=== PATIENT | female | born 1975 | race Caucasian/White ===

== ENCOUNTER 2018-08-31 14:48 | Emergency (ER) | payer OTHER ==
[2018-08-31] MEDS ORDERED: LABETALOL 20 MG/4ML SYRINGE IV ONE (15:16)
--- NOTE | 2018-08-31 15:18 | RAD REPORT ---
EXAM DESCRIPTION: CT - Ct Stroke Brain Wo Cont - 08/31/2018 3:13 pm CLINICAL HISTORY: Hypertension, headache, right-sided facial numbness and facial droop CLINICAL HISTORY: None. TECHNIQUE: Axial 5 millimeter thick images of the head were obtained without IV contrast. All CT scans are performed using dose optimization technique as appropriate and may include automated exposure control or mA/KV adjustment according to patient size. FINDINGS: No intracranial hemorrhage, mass, or cerebral edema. No acute cortical based infarction id entified. No cortical edema or sulcal effacement. Ventricles are normal. Posterior fossa artifact is present. There is additional spray artifact from a left-sided ear ring. No extra-axial fluid collecti ons. Ross matter-white matter differentiation is preserved. Visualized portions of the mastoid air cells, paranasal sinuses, and orbits are unremarkable. Findings telephoned to the referring clinician 3:14 p.m. IMPRESSION: No CT evidence of acute intracranial process. MR imaging can be used to further evaluate ongoing acute CVA symptoms.
[2018-08-31 15:25] LABS: Absolute Lymphocytes (CBC) 1.8 K/uL (0.7-4.9); Absolute Monocytes 0.7 K/uL (0.1-1.3); Absolute Neutrophil 5.7 K/uL (1.8-8.0); Basophils % 0.8 % (0-1.3); Eosinophils % 3.2 % (0-4.4); Hematocrit 45.8 % (36.0-45.0); Lymphocytes % 20.8 % (15.3-44.8); MPV 9.4 fL (7.6-11.3); RBC Red Blood Cell Count 4.93 M/uL (3.86-4.86)
[2018-08-31 15:40] LABS: Protime INR 1.11
[2018-08-31] MEDS ORDERED: ALTEPLASE 100 ML IV ONE (15:42)
[2018-08-31 15:45] LABS: BUN Blood Urea Nitrogen 8 mg/dL (7-18); Bicarbonate 29 mmol/L (21-32); Glucose Level 88 mg/dL (74-106); Potassium 3.5 mmol/L (3.5-5.1); Sodium Level 143 mmol/L (136-145); Troponin (Emerg Dept Use Only) < 0.02 ng/mL (0.0-0.045)
--- NOTE | 2018-08-31 15:53 | EDPHYS ---
Physician Documentation [facility] Name: Lesvia Olguin Age: 42 yrs Sex: Female : 1975 Arrival Date: 08/31/2018 Time: 14:49 Bed 4 Private MD: Darren Cole R ED Physician Bill Casey HPI: 08/31 15:09 This 42 yrs old Female presents to ER via Unassigned with complaints of rn Numbness Of Face, Numbness Of Arm, High Blood Pressure. 15:09 The patient's problem is reported as a facial droop, paresthesias, in left upper rn extremity, in right side of face. Onset: The symptoms/episode began/occurred at 12:00. Duration: This was a single incident, The episode is continuous. The symptoms are alleviated by nothing. The symptoms are aggravated by nothing. Severity of symptoms: At their worst the symptoms were mild in the emergency department the symptoms are unchanged. The patient has not experienced similar symptoms in the past. Reports sudden onset right facial droop and left arm numbness, feels heavy, single continuous episode, no head injury, reports told had high blood pressure, doesn't take anything for BP. + right sided headache. . 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 - Social history:: Smoking status: . - Family history:: not pertinent. - Ebola Screening: : Patient denies travel to an Ebola-affected area in the 21 days before illness onset. - Hospitalizations: : No recent hospitalization is reported. ROS: 15:09 Constitutional: Negative for fever, chills, and weight loss, Eyes: Negative for injury, rn pain, redness, and discharge, Neck: Negative for injury, pain, and swelling, Cardiovascular: Negative for chest pain, palpitations, and edema, Respiratory: Negative for shortness of breath, cough, wheezing, and pleuritic chest pain, Abdomen/GI: Negative for abdominal pain, nausea, vomiting, diarrhea, and constipation, MS/Extremity: Negative for injury and deformity, Skin: Negative for injury, rash, and discoloration, Neuro: + headache and numbness Exam: 15:09 Constitutional: This is a well developed, well nourished patient who is awake, alert, rn and in no acute distress. Head/Face: Normocephalic, atraumatic. Eyes: Pupils equal round and reactive to light, extra-ocular motions intact. Conjunctiva and sclera are non-icteric and not injected. Cornea within normal limits. Periorbital areas with no swelling, redness, or edema. ENT: MMM Neck: Trachea midline, no thyromegaly or masses palpated, and no cervical lymphadenopathy. Supple, full range of motion without nuchal rigidity, or vertebral point tenderness. No Meningismus. Cardiovascular: Regular rate and rhythm. No pulse deficits. Respiratory: No increased work of breathing, no retractions or nasal flaring. MS/ Extremity: Pulses equal, no cyanosis. Neurovascular intact. Full, normal range of motion. Equal circumference. Neuro: Awake and alert, GCS 15, oriented to person, place, time, and situation. + right upper and lower facial droop, + right facial paresthesia, + LUE paresthesias, no peripheral weakness. Normal gait. Normal cerebellar exam. Vital Signs: 15:20 BP 203 / 117; Pulse 75; Resp 19; Temp 98.9(O); Pulse Ox 100% on R/A; jb1 15:21 BP 203 / 117; Pulse 70; Resp 16; iw 15:24 Temp 97.8(TE); Weight 95.71 kg (R); tw2 15:28 BP 189 / 106; Pulse 78; Resp 18; Pulse Ox 100% on R/A; iw 15:32 BP 179 / 98; iw 15:52 BP 177 / 96; rn 16:00 BP 178 / 90; Pulse 62; Resp 20; Pulse Ox 100% on R/A; jb1 16:01 BP 166 / 93; Pulse 70; Resp 16; Pulse Ox 98% on R/A; iw 16:45 BP 164 / 91; Pulse 75; Resp 17; Temp 98.2(O); Pulse Ox 99% on R/A; iw 17:06 BP 151 / 96; Pulse 78; Resp 17; Pulse Ox 98% on R/A; tw2 17:16 BP 173 / 93; Pulse 71; Resp 17; Pulse Ox 99% on R/A; tw2 NIH Stroke Scale Scores: 14:49 NIHSS Score: 3 tw2 15:09 NIHSS Score: 3 rn 16:36 NIHSS Score: 3 iw 17:16 NIHSS Score: 3 tw2 MDM: 14:54 Patient medically screened. rn 15:18 ED course: CT head no acute findings per Dr. Mayfield. . rn 15:50 Differential diagnosis: CVA. Data reviewed: vital signs, nurses notes, lab test rn result(s), EKG, radiologic studies, CT scan, and as a result, I will admit patient. Counseling: I had a detailed discussion with the patient and/or guardian regarding: the historical points, exam findings, and any diagnostic results supporting the discharge/admit diagnosis, the presence of at least one elevated blood pressure reading (>120/80) during this emergency department visit, lab results, radiology results, the need to transfer to another facility, for higher level of care, [facility] does not immediately have the required specialist. ED course: Accepted for transfer to [facility] for suspected ischemic stroke, TPA started, BP improved after labetalol. . 16:51 ED course: CTA head and neck negative.. rn 08/31 15:03 Order name: Troponin (emerg Dept Use Only); Complete Time: 15:45 rn 08/31 15:03 Order name: Basic Metabolic Panel; Complete Time: 15:45 rn 08/31 15:03 Order name: CBC with Diff; Complete Time: 15:39 rn 08/31 15:03 Order name: Protime (+inr); Complete Time: 15:48 rn 08/31 15:03 Order name: Ptt, Activated; Complete Time: 15:48 rn 08/31 15:03 Order name: CT Stroke Brain w/o Contrast; Complete Time: 15:39 rn 08/31 15:03 Order name: Stroke CXR 1 View; Complete Time: 16:40 rn 08/31 15:53 Order name: Head angio; Complete Time: 16:50 EDMS 08/31 15:53 Order name: Neck Angio; Complete Time: 16:50 EDMS 08/31 15:03 Order name: EKG; Complete Time: 15:04 rn 08/31 15:03 Order name: Accucheck; Complete Time: 15:49 rn 08/31 15:03 Order name: Cardiac monitoring; Complete Time: 15:49 rn 08/31 15:03 Order name: EKG - Nurse/Tech; Complete Time: 15:49 rn 08/31 15:03 Order name: IV Saline Lock; Complete Time: 15:49 rn 08/31 15:03 Order name: Labs collected and sent; Complete Time: 15:49 rn 08/31 15:03 Order name: NPO; Complete Time: 15:49 rn 08/31 15:03 Order name: O2 Per Protocol; Complete Time: 15:49 rn 08/31 15:03 Order name: O2 Sat Monitoring; Complete Time: 15:49 rn 08/31 15:03 Order name: Stroke Swallow Screen; Complete Time: 15:49 rn Administered Medications: 15:18 Drug: Labetalol 10 mg Route: IVP; Site: right antecubital; tw2 15:30 Follow up: Response: No adverse reaction; No change in condition; Blood pressure is tw2 unchanged 15:30 CANCELLED (md): Labetalol 10 mg IVP once over 2 mins; For SBP greater than 140. Hold tw2 for HR less than 60, notify provider. 15:30 Drug: Labetalol 10 mg Route: IVP; Site: right antecubital; tw2 16:13 Follow up: Response: No adverse reaction; Blood pressure is lowered tw2 15:36 Drug: ACTIvase {Co-Signature: tw2 (Mallory Leyva RN).} Route: IV Thrombolytics; Rate: iw calculated rate; Infused Over: 60 mins; 16:36 Follow up: Response: No adverse reaction; No change in condition iw 16:36 Follow up: Response: No adverse reaction; No change in condition iw 16:26 Drug: Demerol 25 mg Route: IVP; Site: left antecubital; iw 17:16 Follow up: Response: No adverse reaction; Pain is unchanged, physician notified tw2 Point of Care Testing: Blood Glucose: 15:20 Blood Glucose: 78 mg/dL; tw2 15:20 per Kyaw Morris tw2 Ranges: Critical Glucose Levels:Adult <50 mg/dl or >400 mg/dl <40 mg/dl or >180 mg/dl Disposition: 08/31/18 15:[address] [facility]. Diagnosis are Paresthesia of skin, Facial weakness. - Reason for transfer: Higher level of care. - Accepting physician is Dr. Wynn. - Condition is Stable. - Problem is new. - Symptoms are unchanged. Critical care time excluding procedures: 15:50 Critical care time: Bedside Care: 25 minutes, Consultation: 3 minutes, Family rn Intervention: 5 minutes. Total time: 33 minutes NIH Stroke Scale - NIH Stroke Score Date: 08/31/2018 Time: 14:49 Total Score = 3 1a. Level of Consciousness (LOC) - 0(Alert) 1b. Level of Consciousness (LOC) (Year \T\ Age) - 0(Both) 1c. LOC Commands (Open \T\ Closes Eyes/Mold Maker Plaster) - 0(Both) 2. Best Gaze (Lateral Gaze Paresis) - 0(Normal) 3. Visual Field Loss - 0(No visual loss) 4. Facial Palsy - 2(Partial paralysis) 5a. Left Arm: Motor (10-second hold) - 0(No drift) 5b. Right Arm: Motor (10-second hold) - 0(No drift) 6a. Left Leg: Motor (5-second hold - always test supine) - 0(No drift) 6b. Right Leg: Motor (5-second hold - always test supine) - 0(No drift) 7. Limb Ataxia (finger/nose \T\ heel/alonso - test with eyes open) - 0(Absent) 8. Sensory Loss (pinprick arms/legs/face) - 1(Mild to moderate loss) 9. Best Language: Aphasia (description/naming/reading) - 0(No aphasia) 10. Dysarthria (speech clarity - read or repeat words) - 0(Normal) 11. Extinction and Inattention (visual/tactile/auditory/spatial/personal) - 0(No abnormality) Initials: tw2 NIH Stroke Scale - NIH Stroke Score Date: 08/31/2018 Time: 15:09 Total Score = 3 1a. Level of Consciousness (LOC) - 0(Alert) 1b. Level of Consciousness (LOC) (Year \T\ Age) - 0(Both) 1c. LOC Commands (Open \T\ Closes Eyes/Mold Maker Plaster) - 0(Both) 2. Best Gaze (Lateral Gaze Paresis) - 0(Normal) 3. Visual Field Loss - 0(No visual loss) 4. Facial Palsy - 2(Partial paralysis) 5a. Left Arm: Motor (10-second hold) - 0(No drift) 5b. Right Arm: Motor (10-second hold) - 0(No drift) 6a. Left Leg: Motor (5-second hold - always test supine) - 0(No drift) 6b. Right Leg: Motor (5-second hold - always test supine) - 0(No drift) 7. Limb Ataxia (finger/nose \T\ heel/alonso - test with eyes open) - 0(Absent) 8. Sensory Loss (pinprick arms/legs/face) - 1(Mild to moderate loss) 9. Best Language: Aphasia (description/naming/reading) - 0(No aphasia) 10. Dysarthria (speech clarity - read or repeat words) - 0(Normal) 11. Extinction and Inattention (visual/tactile/auditory/spatial/personal) - 0(No abnormality) Initials: NIH Stroke Scale - NIH Stroke Score Date: 08/31/2018 Time: 16:36 Total Score = 3 1a. Level of Consciousness (LOC) - 0(Alert) 1b. Level of Consciousness (LOC) (Year \T\ Age) - 0(Both) 1c. LOC Commands (Open \T\ Closes Eyes/Mold Maker Plaster) - 0(Both) 2. Best Gaze (Lateral Gaze Paresis) - 0(Normal) 3. Visual Field Loss - 0(No visual loss) 4. Facial Palsy - 2(Partial paralysis) 5a. Left Arm: Motor (10-second hold) - 0(No drift) 5b. Right Arm: Motor (10-second hold) - 0(No drift) 6a. Left Leg: Motor (5-second hold - always test supine) - 0(No drift) 6b. Right Leg: Motor (5-second hold - always test supine) - 0(No drift) 7. Limb Ataxia (finger/nose \T\ heel/alonso - test with eyes open) - 0(Absent) 8. Sensory Loss (pinprick arms/legs/face) - 1(Mild to moderate loss) 9. Best Language: Aphasia (description/naming/reading) - 0(No aphasia) 10. Dysarthria (speech clarity - read or repeat words) - 0(Normal) 11. Extinction and Inattention (visual/tactile/auditory/spatial/personal) - 0(No abnormality) Initials: NIH Stroke Scale - NIH Stroke Score Date: 08/31/2018 Time: 17:16 Total Score = 3 1a. Level of Consciousness (LOC) - 0(Alert) 1b. Level of Consciousness (LOC) (Year \T\ Age) - 0(Both) 1c. LOC Commands (Open \T\ Closes Eyes/Mold Maker Plaster) - 0(Both) 2. Best Gaze (Lateral Gaze Paresis) - 0(Normal) 3. Visual Field Loss - 0(No visual loss) 4. Facial Palsy - 2(Partial paralysis) 5a. Left Arm: Motor (10-second hold) - 0(No drift) 5b. Right Arm: Motor (10-second hold) - 0(No drift) 6a. Left Leg: Motor (5-second hold - always test supine) - 0(No drift) 6b. Right Leg: Motor (5-second hold - always test supine) - 0(No drift) 7. Limb Ataxia (finger/nose \T\ heel/alonso - test with eyes open) - 0(Absent) 8. Sensory Loss (pinprick arms/legs/face) - 1(Mild to moderate loss) 9. Best Language: Aphasia (description/naming/reading) - 0(No aphasia) 10. Dysarthria (speech clarity - read or repeat words) - 0(Normal) 11. Extinction and Inattention (visual/tactile/auditory/spatial/personal) - 0(No abnormality) Initials: tw2 Signatures: Dispatcher [employer] EDFariba Nielsen RN RN iw Nieto, Roman, MD MD rn Wise, Tara, RN RN tw2 Mallory Leyva RN tw2 Corrections: (The following items were deleted from the chart) 15:30 15:29 Labetalol 10 mg IVP once over 2 mins; For SBP greater than 140. Hold for tw2 HR less than 60, notify provider. ordered. tw2 17:20 15:52 08/31/2018 15:[address] [facility]. tw2 Diagnosis is Paresthesia of skin; Facial weakness. Reason for transfer: Higher level of care. Accepting physician is Dr. Wynn. Condition is Stable. Problem is new. Symptoms are unchanged. rn
--- NOTE | 2018-08-31 15:53 | ER ---
Nurse's Notes [facility] Name: Lesvia Olguin Age: 42 yrs Sex: Female : 1975 Arrival Date: 08/31/2018 Time: 14:49 Bed 4 Private MD: Darren Cole R Diagnosis: Paresthesia of skin;Facial weakness Presentation: 08/31 15:10 Presenting complaint: Patient states: right sided facial numbness and tingling that iw started at 12:00 today, also has tingling to left arm, no weakness noted. Transition of care: patient was not received from another setting of care. Onset of symptoms was August 31, 2018. Risk Assessment: Do you want to hurt yourself or someone else? Patient reports no desire to harm self or others. Initial Sepsis Screen: Does the patient meet any 2 criteria? No. Patient's initial sepsis screen is negative. Does the patient have a suspected source of infection? No. Patient's initial sepsis screen is negative. Care prior to arrival: None. 15:10 Method Of Arrival: Ambulatory iw 15:10 Acuity: HERMINIO 2 iw 15:25 Pre-hospital glucose is not applicable to this patient. iw 15:25 Onset of symptoms was August 31, 2018 at 12:00. iw Triage Assessment: 14:49 The onset of the patients symptoms was more than three but less than six hours ago. The tw2 onset of the patients symptoms was August 31, 2018 at 12:00. General: Appears in no apparent distress. obese, well groomed, Behavior is anxious. FLIGHT PURSER: 15:20 LMP N/A - Hysterectomy tw2 Stroke Activation: Physician: Stroke Attending; Name: ; Notified At: ; Arrived At: Physician: Chief Stroke Resident; Name: ; Notified At: ; Arrived At: Physician: Stroke Resident; Name: ; Notified At: ; Arrived At: Physician: ED Attending; Name: Dr. Casey; Notified At: 14:59; Arrived At: 14:59 Physician: ED Resident; Name: ; Notified At: ; Arrived At: Historical: - Allergies: 15:22 No Known Allergies; iw - PMHx: 16:56 Crohn's; iw - PSHx: 15:22 Hysterectomy; lap band; Cholecystectomy; iw - Immunization history:: Adult Immunizations. - Social history:: Smoking status: . - Family history:: not pertinent. - Ebola Screening: : Patient denies travel to an Ebola-affected area in the 21 days before illness onset. - Hospitalizations: : No recent hospitalization is reported. Screenin:23 Abuse screen: Denies threats or abuse. Denies injuries from another. Nutritional iw screening: No deficits noted. Tuberculosis screening: No symptoms or risk factors identified. Fall Risk IV access (20 points). Assessment: 14:49 VAN Scoring: Arm Drift: Patients demonstrates NO arm weakness. Patient is VAN Negative. tw2 15:14 Reassessment: pt back to ER bed [address] iw 15:15 Patient has been NPO before screening. The patient is alert, and able to follow tw2 commands. The patient does not exhibit slurred or garbled speech. The patient is not exhibiting difficulty speaking. The patient does not exhibit difficulty understanding words. The patient is able to swallow own secretions with no drooling or need for suction. Patient tolerated one teaspoon of water. No drooling, immediate coughing, gurgling, or clearing of the throat was noted. The patient tolerated 90mL of water. No drooling, immediate coughing, gurgling, or clearing of the throat was noted. The patient passed the bedside swallow screening. Oral medications may be given as ordered. Contact Physician for further diet orders. Provider notified of bedside swallow screening results: Bill Casey MD. T-PA (Activase) Screening: Indications: Treatment will start within 4.5 hours onset of symptoms: Yes. Consent for thrombolytic therapy: Yes. General: Appears in no apparent distress. well groomed, Behavior is anxious. Pain: Denies pain. Neuro: Level of Consciousness is awake, alert, obeys commands, Oriented to person, place, time, situation, Transit Planning Manager are equal bilaterally Moves all extremities. Gait is steady, Speech is normal, Facial droop on right, Reports numbness in left arm. Cardiovascular: Heart tones S1 S2 Patient's skin is warm and dry. Respiratory: Airway is patent Respiratory effort is even, unlabored, Respiratory pattern is regular, symmetrical, Breath sounds are clear bilaterally. GI: No signs and/or symptoms were reported involving the gastrointestinal system. Abdomen is round non-distended, obese, Bowel sounds present X 4 quads. Reports lap band refilled yesterday. : No signs and/or symptoms were reported regarding the genitourinary system. EENT: No signs and/or symptoms were reported regarding the EENT system. Derm: No signs and/or symptoms reported regarding the dermatologic system. Musculoskeletal: Range of motion: intact in all extremities. 15:36 Reassessment: See IV TPA VS \T\ Neurological Flowsheet in pts chart. tw2 16:00 Reassessment: Patient appears in no apparent distress at this time. No changes from tw2 previously documented assessment. Patient and/or family updated on plan of care and expected duration. Pain level reassessed. Patient is alert, oriented x 3, equal unlabored respirations, skin warm/dry/pink. 16:07 Reassessment: pt moved via stretcher to CT with ZA[employer] Link at this time. tw2 16:19 Reassessment: pt back from CT at this time, c/o headache, provider notified. tw2 16:36 Reassessment: Patient appears in no apparent distress at this time. Patient and/or iw family updated on plan of care and expected duration. Pain level reassessed. Patient is alert, oriented x 3, equal unlabored respirations, skin warm/dry/pink. after tPA pts NIHSS score remains the same, pt reports symptoms unchanged. 17:16 Reassessment: Patient appears in no apparent distress at this time. No changes from tw2 previously documented assessment. Patient and/or family updated on plan of care and expected duration. Pain level reassessed. Patient is alert, oriented x 3, equal unlabored respirations, skin warm/dry/pink. Vital Signs: 15:20 BP 203 / 117; Pulse 75; Resp 19; Temp 98.9(O); Pulse Ox 100% on R/A; jb1 15:21 BP 203 / 117; Pulse 70; Resp 16; iw 15:24 Temp 97.8(TE); Weight 95.71 kg (R); tw2 15:28 BP 189 / 106; Pulse 78; Resp 18; Pulse Ox 100% on R/A; iw 15:32 BP 179 / 98; iw 15:52 BP 177 / 96; rn 16:00 BP 178 / 90; Pulse 62; Resp 20; Pulse Ox 100% on R/A; jb1 16:01 BP 166 / 93; Pulse 70; Resp 16; Pulse Ox 98% on R/A; iw 16:45 BP 164 / 91; Pulse 75; Resp 17; Temp 98.2(O); Pulse Ox 99% on R/A; iw 17:06 BP 151 / 96; Pulse 78; Resp 17; Pulse Ox 98% on R/A; tw2 17:16 BP 173 / 93; Pulse 71; Resp 17; Pulse Ox 99% on R/A; tw2 NIH Stroke Scale Scores: 14:49 NIHSS Score: 3 tw2 15:09 NIHSS Score: 3 rn 16:36 NIHSS Score: 3 iw 17:16 NIHSS Score: 3 tw2 ED Course: 14:49 Patient arrived in ED. as 14:49 Darren Cole MD is Private Physician. as 14:51 Placed in gown. Bed in low position. Side rails up X2. library monitor on. Pulse ox on. tw2 NIBP on. 14:54 Bill Casey MD is Attending Physician. rn 14:59 Mallory Leyva RN is Primary Nurse. tw2 15:[address] with [employer]AIRA Link. tw2 15:11 CT Stroke Brain w/o Contrast In Process Unspecified. EDMS 15:21 Triage completed. iw 15:23 Arm band placed on. iw 15:25 EKG done, by medical record technician. reviewed by Bill Casey MD. sm3 15:30 Inserted saline lock: 20 gauge in right antecubital area, using aseptic technique. jb1 Blood collected. 15:35 Stroke CXR 1 View In Process Unspecified. EDMS 15:37 initiated a transfer with Aiyana at the [facility]. eb 15:[address] Wynn the neurologist director corporate communications for [facility] with Dr. madelyn Casey for patient transfer consultation. 15:[address] Wynn with Dr. Casey for patient transfer consultation. eb 15:48 Inserted saline lock: 22 gauge in left antecubital area, using aseptic technique. jb1 15:55 administrative approval given by Aiyana Novak at the [facility]/ madelyn patient has been accepted by Dr. Wynn at the [facility] 7 south Bed 5/ report to be called to [phone]/. 15:[address] via stretcher. ls3 16:03 Awaiting: unsuccessful attempt at calling report to [facility] at this time, tw2 will attempt again in 15 mins. 16:14 Head angio In Process Unspecified. EDMS 16:14 Neck Angio In Process Unspecified. EDMS 17:19 No provider procedures requiring assistance completed. Patient transferred, IV remains tw2 in place. Administered Medications: 15:18 Drug: Labetalol 10 mg Route: IVP; Site: right antecubital; tw2 15:30 Follow up: Response: No adverse reaction; No change in condition; Blood pressure is tw2 unchanged 15:30 CANCELLED (): Labetalol 10 mg IVP once over 2 mins; For SBP greater than 140. Hold tw2 for HR less than 60, notify provider. 15:30 Drug: Labetalol 10 mg Route: IVP; Site: right antecubital; tw2 16:13 Follow up: Response: No adverse reaction; Blood pressure is lowered tw2 15:36 Drug: ACTIvase {Co-Signature: tw2 (Mallory Leyva RN).} Route: IV Thrombolytics; Rate: iw calculated rate; Infused Over: 60 mins; 16:36 Follow up: Response: No adverse reaction; No change in condition iw 16:36 Follow up: Response: No adverse reaction; No change in condition iw 16:26 Drug: Demerol 25 mg Route: IVP; Site: left antecubital; iw 17:16 Follow up: Response: No adverse reaction; Pain is unchanged, physician notified tw2 Point of Care Testing: Blood Glucose: 15:20 Blood Glucose: 78 mg/dL; tw2 15:20 per Kyaw Morris tw2 Ranges: Outcome: 15:52 ER care complete, transfer ordered by . rn 17:19 Transferred by ground EMS to [facility]. tw2 17:19 Condition: stable 17:19 Instructed on the need for transfer. 17:20 Patient left the ED. tw2 NIH Stroke Scale - NIH Stroke Score Date: 08/31/2018 Time: 14:49 Total Score = 3 1a. Level of Consciousness (LOC) - 0(Alert) 1b. Level of Consciousness (LOC) (Year \T\ Age) - 0(Both) 1c. LOC Commands (Open \T\ Closes Eyes/Adult School Counselor) - 0(Both) 2. Best Gaze (Lateral Gaze Paresis) - 0(Normal) 3. Visual Field Loss - 0(No visual loss) 4. Facial Palsy - 2(Partial paralysis) 5a. Left Arm: Motor (10-second hold) - 0(No drift) 5b. Right Arm: Motor (10-second hold) - 0(No drift) 6a. Left Leg: Motor (5-second hold - always test supine) - 0(No drift) 6b. Right Leg: Motor (5-second hold - always test supine) - 0(No drift) 7. Limb Ataxia (finger/nose \T\ heel/alonso - test with eyes open) - 0(Absent) 8. Sensory Loss (pinprick arms/legs/face) - 1(Mild to moderate loss) 9. Best Language: Aphasia (description/naming/reading) - 0(No aphasia) 10. Dysarthria (speech clarity - read or repeat words) - 0(Normal) 11. Extinction and Inattention (visual/tactile/auditory/spatial/personal) - 0(No abnormality) Initials: tw2 NIH Stroke Scale - NIH Stroke Score Date: 08/31/2018 Time: 15:09 Total Score = 3 1a. Level of Consciousness (LOC) - 0(Alert) 1b. Level of Consciousness (LOC) (Year \T\ Age) - 0(Both) 1c. LOC Commands (Open \T\ Closes Eyes/Adult School Counselor) - 0(Both) 2. Best Gaze (Lateral Gaze Paresis) - 0(Normal) 3. Visual Field Loss - 0(No visual loss) 4. Facial Palsy - 2(Partial paralysis) 5a. Left Arm: Motor (10-second hold) - 0(No drift) 5b. Right Arm: Motor (10-second hold) - 0(No drift) 6a. Left Leg: Motor (5-second hold - always test supine) - 0(No drift) 6b. Right Leg: Motor (5-second hold - always test supine) - 0(No drift) 7. Limb Ataxia (finger/nose \T\ heel/alonso - test with eyes open) - 0(Absent) 8. Sensory Loss (pinprick arms/legs/face) - 1(Mild to moderate loss) 9. Best Language: Aphasia (description/naming/reading) - 0(No aphasia) 10. Dysarthria (speech clarity - read or repeat words) - 0(Normal) 11. Extinction and Inattention (visual/tactile/auditory/spatial/personal) - 0(No abnormality) Initials: zaira NIH Stroke Scale - NIH Stroke Score Date: 08/31/2018 Time: 16:36 Total Score = 3 1a. Level of Consciousness (LOC) - 0(Alert) 1b. Level of Consciousness (LOC) (Year \T\ Age) - 0(Both) 1c. LOC Commands (Open \T\ Closes Eyes/Adult School Counselor) - 0(Both) 2. Best Gaze (Lateral Gaze Paresis) - 0(Normal) 3. Visual Field Loss - 0(No visual loss) 4. Facial Palsy - 2(Partial paralysis) 5a. Left Arm: Motor (10-second hold) - 0(No drift) 5b. Right Arm: Motor (10-second hold) - 0(No drift) 6a. Left Leg: Motor (5-second hold - always test supine) - 0(No drift) 6b. Right Leg: Motor (5-second hold - always test supine) - 0(No drift) 7. Limb Ataxia (finger/nose \T\ heel/alonso - test with eyes open) - 0(Absent) 8. Sensory Loss (pinprick arms/legs/face) - 1(Mild to moderate loss) 9. Best Language: Aphasia (description/naming/reading) - 0(No aphasia) 10. Dysarthria (speech clarity - read or repeat words) - 0(Normal) 11. Extinction and Inattention (visual/tactile/auditory/spatial/personal) - 0(No abnormality) Initials: paul NIH Stroke Scale - NIH Stroke Score Date: 08/31/2018 Time: 17:16 Total Score = 3 1a. Level of Consciousness (LOC) - 0(Alert) 1b. Level of Consciousness (LOC) (Year \T\ Age) - 0(Both) 1c. LOC Commands (Open \T\ Closes Eyes/Adult School Counselor) - 0(Both) 2. Best Gaze (Lateral Gaze Paresis) - 0(Normal) 3. Visual Field Loss - 0(No visual loss) 4. Facial Palsy - 2(Partial paralysis) 5a. Left Arm: Motor (10-second hold) - 0(No drift) 5b. Right Arm: Motor (10-second hold) - 0(No drift) 6a. Left Leg: Motor (5-second hold - always test supine) - 0(No drift) 6b. Right Leg: Motor (5-second hold - always test supine) - 0(No drift) 7. Limb Ataxia (finger/nose \T\ heel/alonso - test with eyes open) - 0(Absent) 8. Sensory Loss (pinprick arms/legs/face) - 1(Mild to moderate loss) 9. Best Language: Aphasia (description/naming/reading) - 0(No aphasia) 10. Dysarthria (speech clarity - read or repeat words) - 0(Normal) 11. Extinction and Inattention (visual/tactile/auditory/spatial/personal) - 0(No abnormality) Initials: tw2 Signatures: Dispatcher [employer] Arturo Cadet jb1 Desi Durham Irene, RN RN iw Carmela, MD MD zaira Khan, ZAIRA Tejada RN tw2 Any Chaudhary Shakira 3 Kannan Herrera 3 Mallory Leyva RN tw2 Corrections: (The following items were deleted from the chart) 15:43 15:10 Presenting complaint: Patient states: right sided facial numbness and iw tingling that started about 11:00 today, also has tingling to left arm, pt c/o pain to left arm X 2 days then the tingling started today at 0900, also c/o pain to right side of head, no weakness noted iw 15:47 15:[address] Wynn the neurologist director corporate communications for [facility] with Dr. madelyn Casey for patient transfer consultation. eb 15:49 15:32 BP 179 / 106; iw iw 16:01 15:20 BP 203 / 117; Pulse 75bpm; Resp 19bpm; Pulse Ox 100% RA; tw2 jb1
--- NOTE | 2018-08-31 16:00 | RAD REPORT ---
EXAM DESCRIPTION: RAD - Chest Single View - 08/31/2018 3:35 pm CLINICAL HISTORY: Stroke protocol chest film COMPARISON: None. TECHNIQUE: AP portable chest image was obtained 1531 hours . FINDINGS: Lung volumes are low. No focal lung parenchymal process. Heart and vasculature are normal. No measurable pleural effusion and no pneumothorax. No acute bony abnormality seen. No acute aortic findings suspected. IMPRESSION: No acute cardiopulmonary process.
[2018-08-31] MEDS ORDERED: MEPERIDINE HCL 25 MG/0.5 ML ONE (16:36)
--- NOTE | 2018-08-31 16:41 | RAD REPORT ---
EXAM DESCRIPTION: CT - Head angio - 08/31/2018 4:14 pm TECHNIQUE: During dynamic enhancement using nonionic IV contrast, axial 1 millimeter thick images of the head were obtained. Sagittal and axial reconstruction images were generated and reviewed. Maximu m intensity projection protocol utilized. All CT scans are performed using dose optimization technique as appropriate and may include automated exposure control or mA/KV adjustment according to patient size. FINDINGS: No aneurysm or vascular malformation identified. Major venous sinuses are patent. No stenosis, named branch occlusion, vasculitis or other significant vascular finding identifiable. IMPRESSION: Negative CT angio head examination.
--- NOTE | 2018-08-31 16:43 | RAD REPORT ---
EXAM DESCRIPTION: CT - Neck Angio - 08/31/2018 4:15 pm TECHNIQUE: During dynamic enhancement using nonionic IV contrast, axial 2 mm thick images of the nec k were obtained. Sagittal and axial reconstruction images were generated using maximum intensity proj ection protocol and reviewed. All CT scans are performed using dose optimization technique as appropriate and may include automated exposure control or mA/KV adjustment according to patient size. COMPARISON: CT head same date FINDINGS: No aneurysm or vascular malformation identified. No carotid or vertebral dissection. No aortic arch or great vessel origin abnormality seen. Vertebral artery origins unremarkable as well . No stenosis, vasculitis or other significant carotid artery finding. No focal abnormality of either vertebral artery. Basilar artery is normal. IMPRESSION: Negative CT angio neck examination.
--- NOTE | 2018-08-31 17:05 | EKG ---
Test Date: 2018-08-31 Test Time: 15:16:48 City Designer: ANDRA MEASUREMENT RESULTS: Intervals: Rate: 80 HI: 138 QRSD: 82 QT: 400 QTc: 461 [place]: P: 34 HI: 138 QRS: 0 T: -2 INTERPRETIVE STATEMENTS: Normal sinus rhythm cannot rule out Inferior infarct, age undetermined Abnormal ECG No previous ECG available for comparison Electronically Signed On 08-31-18 17:04:24 CDT by Timi Catalan
[2018-08-31 17:44] VITALS: TEMP 98.2
[2018-08-31 17:47] VITALS: BP 173/93; O2SAT 99
== END 2018-08-31 17:20 | disposition short-term general hospital (02) ==
LOC: ER 14:48
DX: R20.2 Paresthesia of skin (principal); R29.810 Facial weakness; K50.90 Crohn's disease, unspecified, without complications
CPT/HCPCS: 36415; 70450; 70496; 70498; 71045; 80048; 82962; 84484; 85025; 85610; 85730; 92977; 93005; 99285; J2175; J2997; Q9967